=== PATIENT | female | born 1970 | race Two or more races ===

== ENCOUNTER 2024-09-10 10:15 | Emergency (ER) | payer OTHER ==
[~2024-09-10] VITALS: Ht 165.1 cm; Wt 81.6 kg
[2024-09-10] MEDS ORDERED: MECLIZINE HCL 25 MG TABLET PO STA (11:23)
[2024-09-10] MEDS ORDERED: hydrOXYzine PAMOATE 25 MG CAPSULE PO ONE (11:24)
[2024-09-10] MEDS ORDERED: MECLIZINE HCL 25 MG TABLET PO ONE (11:24)
[2024-09-10 11:45] LABS: BASO % 0.7 % (0.1-1.2); EOS # 0.08 (0.04-0.54); EOS % 1.2 % (0.7-7.0); HEMOGLOBIN 14.9 g/dL (11.2-15.7); LYMPH # 1.84 (1.18-3.74); LYMPH % 26.7 % (19.3-53.1); MEAN CORPUSCULAR HEMOGLOBIN 31.5 pg (25.6-32.2); MONO # 0.39 (0.24-0.82); MONO % 5.7 % (4.7-12.5); NEUT # 4.51 (1.56-6.13); NEUT % 65.6 % (34.0-71.1); PLATELET COUNT 337 K/uL (163-369); RED BLOOD COUNT 4.73 M/uL (3.93-5.22); RED CELL DISTRIBUTION WIDTH 12.8 % (11.6-14.4)
[2024-09-10 12:34] LABS: CALCIUM 9.6 mg/dL (8.5-10.1); CREATININE SERUM 0.7 mg/dL (0.55-1.02); GFR 87.53; POTASSIUM 4.57 mEq/L (3.5-5.1)
== END 2024-09-10 12:46 | disposition home or self-care (01) ==
LOC: ER 10:20
PROVIDERS: General Practice
DX: R42 Dizziness and giddiness (principal)